=== PATIENT | male | born 1980 | race African-American/Black ===

== ENCOUNTER 2017-08-23 20:24 | Emergency (ER) | payer OTHER ==
[~2017-08-23] VITALS: Ht 170.2 cm; Wt 91.5 kg
[2017-08-23 20:34] VITALS: TEMP 36.7; O2SAT 95; Ht 170.2 cm; Wt 91.5 kg
--- NOTE | 2017-08-23 22:26 | EMERGENCY ROOM VISIT NOTE ---
History Report prepared by Guru: Brayna Bonilla Under the Supervision of: Dr. Ledy Chand D.O. First contact with patient: 21:08 Chief Complaint: OVERDOSE (INTENTIONAL) Stated Complaint: OVERDOSE History of Present Illness The patient is a 37 year old male who presents to the Emergency Room for evaluation of constant drug intoxication beginning two hours ago. He is incarcerated at [facility]. He admits to smoking K2 today. The patient states that he began panicking after smoking. He states that he has smoked K2 before in the past, but currently feels different. He states that he was taken to the [facility] because he looked ill. The patient states that he had heart palpitations and nausea. He states "I feel off". He states that his symptoms have been improving. The patient denies any SOB. He states that he has smoked K2 twice in the last three days. Source of History: patient Onset: Two hours ago Quality: other (drug intoxication) Timing: constant Associated Symptoms: + nausea, No SOB Note: The patient states that he had heart palpitations. Review of Systems See HPI for pertinent positives & negatives. A total of 10 systems reviewed and were otherwise negative. Past Medical & Surgical Medical Problems: (1) No Known Active Medical Problems Family History No pertinent family history stated. Social History Smoking Status: Current Every Day Smoker Occupation Status: other (incarcerated) Current/Historical Medications Scheduled Diphenhydramine Hcl (Benadryl), 50 MG PO HS Metoprolol Tartrate (Lopressor) (Lopressor), 25 MG PO BID Sertraline (Zoloft), 50 MG PO DAILY Trazodone Hcl (Trazodone), 3 TAB PO HS Allergies Coded Allergies: No Known Allergies (Unverified , 08/23/17) Physical Exam Vital Signs Date Time Temp Pulse Resp B/P (MAP) Pulse Ox O2 Delivery O2 Flow Rate FiO2 08/23/17 22:30 50 17 130/86 96 08/23/17 22:05 54 16 99/51 96 Room Air 08/23/17 20:34 95 Room Air 08/23/17 20:34 36.7 73 18 115/64 95 Room Air 08/23/17 20:33 73 Physical Exam GENERAL: alert, well appearing, well nourished, no distress, non-toxic EYE EXAM: normal conjunctiva, PERRL and EOM's grossly intact OROPHARYNX: no exudate, no erythema, lips, buccal mucosa, and tongue normal and mucous membranes are moist NECK: supple, no nuchal rigidity, no adenopathy, non-tender LUNGS: Clear to auscultation. Normal chest wall mechanics HEART: no murmurs, S1 normal and S2 normal ABDOMEN: abdomen soft, non-tender, normo-active bowel sounds, no masses, no rebound or guarding. BACK: Back is symmetrical on inspection and there is no deformity, no midline tenderness, no CVA tenderness. SKIN: no rashes and no bruising UPPER EXTREMITIES: upper extremities are grossly normal. LOWER EXTREMITIES: No pitting edema. NEURO EXAM: Normal sensorium, cranial nerves II-XII grossly intact, normal speech, no gross weakness of arms, no gross weakness of legs. Medical Decision & Procedures Laboratory Results Test 08/23/17 00:00 Urine Opiates Screen NEG (NEG) Urine Methadone, Qualitative NEG (NEG) Urine Barbiturates NEG (NEG) Urine Phencyclidine (PCP) Level NEG (NEG) Ur Amphetamine/Methamphetamine NEG (NEG) MDMA (Ecstasy) Screen POS (NEG) Urine Benzodiazepines Screen NEG (NEG) Urine Cocaine Metabolite NEG (NEG) Urine Marijuana (THC) NEG (NEG) Laboratory results per my review. ECG Indication: toxicologic Rate (beats per minute): 55 Rhythm: sinus bradycardia Findings: T-wave inversion (isolated in lead 3), no acute ischemic change, no ectopy, other (Normal axis. Normal intervals.) ED Course 2111: The patient was evaluated in room C8. A complete history and physical exam was performed. 2224: Upon reevaluation, the patient is feeling better. I discussed the findings and the treatment plan with the patient. He verbalizes agreement and understanding. He was discharged home. Medical Decision Differential diagnosis: Etiologies such as toxicologic, infection, hypoglycemia, electrolyte abnormalities, cardiac sources, intracerebral event, neurologic, as well as others were entertained. Pt well appearing here. No evidence or history of trauma. No dysrhythmia noted on tele or EKG. Pt improved and able to be returned to jail. Doubt cva , acs, dissection. Medication Reconcilliation Current Medication List: was personally reviewed by me Blood Pressure Screening Patient's blood pressure: Normal blood pressure Blood pressure disposition: Did not require urgent referral Impression Primary Impression: Encounter for medical screening examination Additional Impression: Recreational drug use Scribe Attestation The scribe's documentation has been prepared under my direction and personally reviewed by me in its entirety. I confirm that the note above accurately reflects all work, treatment, procedures, and medical decision making performed by me. Departure Information Dispostion Home / Self-Care Patient Instructions My [facility] Additional Instructions Please do not use recreational drugs. Please take your medications as prescribed. If you have any new or concerning symptoms, these return the emergency room. Problem Qualifiers
[2017-08-23 22:30] VITALS: BP 130/86; PULSE 50; O2SAT 96
[2017-08-23] MEDS ORDERED: SERT50TA PO (22:31)
[2017-08-23] MEDS ORDERED: BND25 PO (22:31)
[2017-08-23] MEDS ORDERED: TRAZ100T29 PO (22:31)
[2017-08-23] MEDS ORDERED: METO25TA56 PO (22:31)
[2017-08-23 22:42] LABS: BENZODIAZEPINE, URINE NEG (NEG); COCAINE,URINE NEG (NEG); PHENCYCLIDINE, URINE NEG (NEG)
== END 2017-08-23 22:30 | disposition home or self-care (01) ==
LOC: C.EDC 20:26
DX: Z01.89 Encounter for other specified special examinations (principal); F19.90 Other psychoactive substance use, unspecified, uncomplicated; F17.210 Nicotine dependence, cigarettes, uncomplicated; Z79.899 Other long term (current) drug therapy